=== PATIENT | female | born 1970 | race Caucasian/White ===

== ENCOUNTER → 2017-10-03 20:01 | Outpatient (CLI) | payer BC ==
[2011-11-06 12:24] VITALS: BMI 25.3
== END | disposition home or self-care (01) ==
LOC: D.MAMMO 13:00
DX: Z12.31 Encounter for screening mammogram for malignant neoplasm of breast (principal)

== ENCOUNTER 2018-11-06 09:00 | Outpatient (CLI) | payer BC ==
[2011-11-06 12:24] VITALS: BMI 25.3
== END 2018-11-06 10:00 | disposition home or self-care (01) ==
LOC: D.MAMMO 09:00
PROVIDERS: ATTEND Obstetrics & Gynecology
DX: Z12.31 Encounter for screening mammogram for malignant neoplasm of breast (principal)